=== PATIENT | female | born 1980 | race Caucasian/White ===

== ENCOUNTER 2024-07-31 11:19 | Outpatient (CLI) | payer BC, SELFPAY ==
--- NOTE | ~2024-07-31 | US_ITS ---
EXAM: PELVIC ULTRASOUND HISTORY: Pelvic pain COMPARISON: None FINDINGS: UTERUS: 8.6 x 3.2 x 5.2 cm. The uterus is anteverted and anteflexed. The endometrial complex measures 6.2 mm. RIGHT OVARY: The right ovary is unremarkable in echogenicity and size measuring 3.2 x 1.7 x 2.3 cm. Arterial and venous flow are identified. A single anechoic avascular focus within the right ovary measuring 14 x 16 x 14 mm, consistent with a simple cyst/dominant follicle for which no further follow-up is needed. LEFT OVARY: The left ovary is unremarkable in echogenicity and size measuring 1.8 x 1.6 x 1.7 cm Both arterial and venous flow are identified. No free fluid is identified within the pelvis. IMPRESSION: Simple cyst/dominant follicle within the right ovary for which no further follow-up is needed. Otherw ise, unremarkable sonographic evaluation of the pelvis, as detailed above. Reviewed, dictated and finalized at location A. [employer] IMPRESSION: Simple cyst/dominant follicle within the right ovary for which no further follo w-up is needed. Otherwise, unremarkable sonographic evaluation of the pelvis, a s detailed above.
== END 2024-07-31 11:20 | disposition home or self-care (01) ==
LOC: MICIMG 11:21
PROVIDERS: PCP Nurse Practitioner Women's Health; Visit Provider Nurse Practitioner Women's Health
DX: R10.2 Pelvic and perineal pain (principal)
CPT/HCPCS: 76856

== ENCOUNTER 2024-12-30 12:32 | Outpatient (CLI) | payer BC, SELFPAY ==
--- NOTE | ~2024-12-30 | MM_ITS ---
EXAMINATION: MM screening peyman BI w braden HISTORY: Screening TECHNIQUE: Craniocaudal and mediolateral oblique 3-D tomosynthesis images were obtained and synthetic 2-D images were generated. CAD analysis was submitted and interpreted. COMPARISON: No prior mammogram is available for comparison at this institution. BREAST PARENCHYMAL COMPOSITION: Dense: The breasts are heterogeneously dense, which may obscure small masses FINDINGS: There is a mass in the upper outer quadrant of the right breast, anterior third, partially obscured by fibroglandular tissue. There is no mammographic evidence for malignancy in the left breas t. IMPRESSION: 1. Right breast mass. 2. Additional mammographic views and possible breast ultrasound are recommended. BI-RADS Category 0: Incomplete: Needs additional imaging evaluation. Reviewed, dictated and finalized at location B. IMPRESSION: 1. Right breast mass. 2. Additional mammographic views and possible breast ultrasound are recommended . BI-RADS Category 0: Incomplete: Needs additional imaging evaluation.
== END 2024-12-30 12:33 | disposition home or self-care (01) ==
LOC: MICIMG 12:33
PROVIDERS: PCP Obstetrics & Gynecology Gynecology; Visit Provider Obstetrics & Gynecology Gynecology
DX: Z12.31 Encounter for screening mammogram for malignant neoplasm of breast (principal); R92.8 Other abnormal and inconclusive findings on diagnostic imaging of breast
CPT/HCPCS: 77063; 77067

== ENCOUNTER 2025-01-02 | Day surgery (SDC) | payer BC, SELFPAY ==
[2024-12-25 08:53] VITALS: BMI 20.2
--- OUTSIDE RECORDS SUMMARY | 2025-01-02 00:02 | XMS_ITS | Clinical Summary ---
Author Organization [facility] Address [facility] [facility] [place] [address] Care Team Providers Care Career Counselor Name Role Phone Unknown, Provider Primary Care Provider Unavaila ble Source Comments [facility],non-owned Affiliates and Associated Physician Practices is amultiple site organization consisting of ambulatory clinics and hospital sitesin [place], [place], [place]. This disclosure is being madepursuant to the Care Everywhere program and may not contain all information available regarding this patient. Last updated 18.[facility] Allergies Active Allergy Reactions Criticality Noted Date Comments Ibuprofen Swelling High 05/29/2016 Penicillins 05/29/2016 Acetaminophen Swelling 05/29/2016 Medications * Be aware that medications may not be up to date on this document. Alwaysverify current medications with the patient. azithromycin (ZITHROMAX) 250 MG tabletIndicatio ns:Strep throat Take 2 tablets now, then 1 tablet daily for 4 days. 6 Tab 08/28/2016 Active Family History Medical History Relation Name Comments ADHD Neg Hx Allergies Neg Hx Aneurysm Neg Hx Asthma Neg Hx Autoimmune Disease Neg Hx Bipolar Disorder Neg Hx CVA<55(male) Neg Hx CVA<65(female) Neg Hx Cancer - Breast Neg Hx Cancer - Colon Neg Hx Cancer - Other Neg Hx Cancer - Ovarian Neg Hx Cancer - Pancreatic Neg Hx Cancer - Prostate Neg Hx Childhood Hearing Disorder Neg Hx Clotting Disorder Neg Hx Depression Neg Hx Diabetes Neg Hx Eczema Neg Hx Genetic Neg Hx Heart defect Neg Hx Hypercholesterolemia Neg Hx Hypertension Neg Hx [place]<55(male) Neg Hx [place]<65(female) Neg Hx Mental Health Neg Hx Migraine Neg Hx Osteoporosis Neg Hx Seizures Neg Hx Sudd. <30 Neg Hx Thyroid Disease Neg Hx Ulcerative Colitis Neg Hx Social History Tobacco Use Types Packs/Day Years Used Date Smoking Tobacco: Never Comments Unknown Sex and Gender Information Value Date Recorded Sex Assigned at Not on file Legal Sex Female 9:29 AM CDT Gender Identity Not on file Sexual Orientation Not on file Last Filed Vital Signs Vital Sign Reading Time Taken Comments Blood Pressure 110/64 08/28/2016 2:24 PM [employer] Pulse 65 08/28/2016 2:24 PM [employer] Temperature 36.8 C (98.2 F) 08/28/2016 2:24 PM [employer] Respiratory Rate 16 08/28/2016 2:24 PM [employer] Oxygen Saturation 98% 08/28/2016 2:24 PM [employer] Inhaled Oxygen Concentration - - Weight 52.2 kg (115 lb) 08/28/2016 2:24 PM [employer] Height 167.6 cm (5' 6 ) 08/28/2016 2:24 PM [employer] Body Mass Index 18.56 08/28/2016 2:24 PM [employer] Plan of Treatment Health Maintenance Due Date Last Done Comments COLOGUARD (AGES 45-75) - COL ON CA SCREENING 1979 COLON MONITORING 1979 COLONOSCOPY - COLON CA SCREENING 1979 CT COLONOGRAPHY - COLON CA SCREENING 1979 Colorectal Cancer Screening 1979 FIT - COLON CA SCREENING 1979 FLEX SIG - COLON CA SCREENING 1979 LIPID TESTING 1979 MAMMOGRAM 1979 PAP SMEAR 1979 HIV SCREENING 1994 HEPATITIS C SCREENING 06/03/1997 DTAP/TDAP/TD VACCINES (1 - Tdap) 1998 HEPATITIS B VACCINE (1 of 3 - 19+ 3-dose series) 1998 COVID-19 VACCINE ( - 2023-2 5 season) 2024 DEPRESSION SCREENING 09/17/2024 INFLUENZA VACCINE (Season Ended) 2025 ZOSTER VACCINE (1 of 2) 2029 HIB VACCINE Aged Out No longer eligi ble based on patient's age to complete this topic HPV VACCINE Aged Out No longer eligi ble based on patient's age to complete this topic MENINGOCOCCAL (Group B) VACC INE SHARED DECISION-MAKING Aged Out No longer eligibl e based on patient's age to complete this topic MENINGOCOCCAL GROUPS A/C/Y/W VACCINE Aged Out No longer eligible b ased on patient's age to complete this topic PNEUMOCOCCAL VACCINE Aged Out No long er eligible based on patient's age to complete this topic Insurance ANTH Care Teams Career Counselor Relationship Specialty Start Date End Date Unknown, Provider PCP - General 08/28/16
[2025-01-02 08:30] VITALS: BP 132/75; PULSE 77; RESP 16; TEMP 36.9; O2SAT 99
[2025-01-02 08:36] LABS: BEDSIDEPREGUCG Negative (Negative)
--- NOTE | 2025-01-02 08:37 | WPDANESEPPF ---
Anes - Initial Pre Proc Eval Procedure: Operation Date: 01/02/25 09:30 Proposed Procedures p Screening Colonoscopy - Magen Aguila MD Date/Time: 01/02/25 08:37 Surgeon: Magen Aguila MD Pre Op Diagnosis: screening colon Patient Data Age: 44 Gender: F Height: 1.68 m Weight: 57.1 kg Last Vital Signs Temp 36.9 C 01/02/25 08:30 Pulse 77 01/02/25 08:30 Resp 16 01/02/25 08:30 BP 132/75 01/02/25 08:30 Pulse Ox 99 01/02/25 08:30 O2 Del Method Room Air 01/02/25 08:30 Allergies Allergy/AdvReac Type Severity Reaction Status Date / Time ibuprofen Allergy Severe Swelling Verified 01/02/25 08:27 of Lip/Tongue/Throat Penicillins Allergy Mild Hives / Verified 01/02/25 08:27 Red Face Home Medications ?Medication ?Instructions ?Recorded ?Confirmed ?Type albuterol sulfate 90 mcg/actuation 1 inh inhalation Q8H PRN shortness 12/25/24 01/02/25 History aerosol inhaler of breath or wheezing Laboratory Tests 01/02/25 08:30 POC Urine HCG, Qual Negative (Negative) Patient hx anesthesia problems: none Family hx anesthesia problems: none Results Review: All pre-operative results and documents have been reviewed as part of the pre-operative evaluation. [facility] Past Medical History Medical History (Updated 01/02/25 @ 08:37 by Giovanny Ortiz MD) Asthma Social History Social History Alcohol intake: current Drinks per week: 5 Substance use: never Substance use type: does not use Living arrangements: with family Spiritual care concerns: No Anes - Eval Final PreProcedure Day of Procedure 01/02/25 08:37 Patient weight: normal Heart: regular rate and rhythm Lungs: clear to auscultation Airway: Mallampati scale class II Neurological: alert and oriented Last oral intake: >/= 8 hours ASA classification: II Emergent: no Anesthetic plan: proceed Anesthesia type and monitoring: general GIVS and standard monitoring Results Review: All pre-operative results and documents have been reviewed as part of the pre-operative evaluation. Informed Consent: The patient's anesthetic plan and its attendant risks and benefits were discussed with the patient/family/POA. Questions were solicited and answers provided to the satisfaction of the patient/family/POA.
[2025-01-02] MEDS: LACTATED RINGERS 1,000 ML 150 ML IV CONT (08:41)
--- NOTE | 2025-01-02 08:53 | PM.IMHP ---
H&P: HPI History of Present Illness Date/Time: 01/02/25 08:53 Chief Complaint: Screening colonoscopy Narrative: This is the patient's first colonoscopy. There are no GI symptoms and there is no family history of colorectal cancer. Review of Systems Review of Systems: All systems reviewed & are unremarkable except as noted in HPI and below PMFSH Past Medical History Medical History (Updated 01/02/25 @ 08:54 by Magen Aguila MD) Asthma Social History Social History Alcohol intake: current Drinks per week: 5 Substance use: never Substance use type: does not use Living arrangements: with family Spiritual care concerns: No Meds Home Medications and Allergies Home Medications ?Medication ?Instructions ?Recorded ?Confirmed ?Type albuterol sulfate 90 mcg/actuation 1 inh inhalation Q8H PRN shortness 12/25/24 01/02/25 History aerosol inhaler of breath or wheezing Allergies Allergy/AdvReac Type Severity Reaction Status Date / Time ibuprofen Allergy Severe Swelling Verified 01/02/25 08:27 of Lip/Tongue/Throat Penicillins Allergy Mild Hives / Verified 01/02/25 08:27 Red Face Vital Signs Vital Signs - 24 hr 01/02/25 08:30 Temperature 98.4 F Pulse Rate 77 Respiratory Rate 16 Blood Pressure 132/75 Pulse Oximetry 99 Oxygen Delivery Room Air Exam Const: General: cooperative and healthy appearing Resp: Effort & Inspection: normal respiratory effort and able to speak in complete sentences Auscultation: clear to auscultation bilaterally Cardio: Rate: regular rate Rhythm: regular rhythm GI: Inspection: normal to inspection GI Palp: No No hepatosplenomegaly present Auscultation: normal bowel sounds Rectal Exam: deferred Skin: General skin exam: normal color Psych: Appearance: grossly normal Mental Status: mental status grossly normal Assessment and Plan Assessment and plan (1) Encounter for screening colonoscopy: Code(s): Z12.11 - Encounter for screening for malignant neoplasm of colon Status: Acute Assessment and Plan: The patient is deemed a good candidate for the procedure. Consent signed. Will proceed.
[2025-01-02] MEDS: SIMETHICONE ORAL SUSPENSION 20 MG/0.3 ML 30 ML BOTTLE 0.6 ML IRRIGATION (09:08)
[2025-01-02 09:15] VITALS: BP 109/74; PULSE 80; RESP 23; O2SAT 100
[2025-01-02 09:25] VITALS: BP 101/71; BP 103/70; PULSE 69; PULSE 74; RESP 20; RESP 25; O2SAT 100
== END 2025-01-02 09:48 | disposition home or self-care (01) ==
PROVIDERS: Anesthesiology; Referring Provider Nurse Practitioner Women's Health; Visit Provider Internal Medicine Gastroenterology
PROC: 0DJD8ZZ Inspection of Lower Intestinal Tract, Via Natural or Artificial Opening Endoscopic (ICD-10-PCS; CPT 45378; principal; 2025-01-02 09:30)
DX: Z12.11 Encounter for screening for malignant neoplasm of colon (principal); J45.909 Unspecified asthma, uncomplicated; Z79.51 Long term (current) use of inhaled steroids
CPT/HCPCS: 45378; J2003; J2704; J7120

== ENCOUNTER 2025-01-15 08:15 | Outpatient (CLI) | payer BC, SELFPAY ==
--- NOTE | ~2025-01-15 | MMUS_ITS ---
EXAMINATION: MM diagnostic peyman RT w braden, US breast RT limited HISTORY: Follow-up right breast mass TECHNIQUE: Additional 3-D tomosynthesis images of the right breast were performed and synthetic 2-D i mages were generated. CAD analysis was submitted and interpreted. High resolution Limited right breas t ultrasound was performed. COMPARISON: 12/30/2024 BREAST PARENCHYMAL COMPOSITION: Dense: The breasts are heterogeneously dense, which may obscure small masses FINDINGS: MAMMOGRAPHIC FINDINGS: There is a persistent mass upper central aspect of the right breast, obscured by fibroglandular tissu e. There are no suspicious calcifications or architectural distortion. ULTRASOUND: Limited right breast ultrasound: At 12:00, 1 cm from the nipple there is a 9 mm cyst corresponding to the mammographic finding. No suspicious masses to suggest malignancy. IMPRESSION: 1. No evidence for malignancy in the right breast. Benign finding. 2. Routine yearly screening mammogram and regular clinical breast examination are recommended. BI-RADS Category 2: Benign finding(s). Reviewed, dictated and finalized at location A. IMPRESSION: 1. No evidence for malignancy in the right breast. Benign finding. 2. Routine yearly screening mammogram and regular clinical breast examination a re recommended. BI-RADS Category 2: Benign finding(s).
== END 2025-01-15 08:16 | disposition home or self-care (01) ==
LOC: MICIMG 08:15
PROVIDERS: PCP Obstetrics & Gynecology Gynecology; Visit Provider Obstetrics & Gynecology Gynecology
DX: R92.8 Other abnormal and inconclusive findings on diagnostic imaging of breast (principal)
CPT/HCPCS: 76642; 77061; 77065; G0279